=== PATIENT | female | born 1970 | race Caucasian/White ===

== ENCOUNTER → 2017-01-31 | Outpatient (CLI) | payer BC ==
--- NOTE | 2017-02-01 07:53 | MM ---
Reason for exam: screening (asymptomatic). Last mammogram was performed 1 year and 10 months ago. History: Patient is postmenopausal and has history of other cancer at age 20. Physical Findings: A clinical breast exam by your physician is recommended on an annual basis and results should be correlated with mammographic findings. MG Screening Mammo w CAD Bilateral CC and MLO view(s) were taken. Prior study comparison: April 03, 2015, bilateral MG screening mammo w CAD. The breast tissue is heterogeneously dense. This may lower the sensitivity of mammography. No significant changes when compared with prior studies. ASSESSMENT: Benign, BI-RAD 2 RECOMMENDATION: Routine screening mammogram of both breasts in 1 year.
== END | disposition home or self-care (01) ==
LOC: RADMAMWWP 07:49
PROVIDERS: ATTEND Family Medicine
DX: Z12.31 Encounter for screening mammogram for malignant neoplasm of breast (principal)

== ENCOUNTER → 2018-07-27 | Day surgery (SDC) | payer BC ==
[2018-07-26 10:19] VITALS: BMI 22.8
[~2018-07-27] MED LIST: LACTATED RINGERS 1,000 ML IV SCH; LIDOCAINE 1% 20 ML VIAL (10MG/ML) FOR IV START INTRADERMA ONE; LIDOCAINE 1% INJ 10MG/ML (20 ML MDV) ONE; PROPOFOL 10 MG/ML 20 ML VIAL IV ONE
[2018-07-27 12:08] VITALS: TEMP 97.4
--- NOTE | 2018-07-27 13:53 | P.PCN ---
Date of Procedure: 07/27/18 Procedure(s) Performed: Procedure: Colonoscopy and polypectomy. Preoperative diagnosis: History of diarrhea. Postoperative diagnosis: 1. Mild sigmoid diverticulosis with no evidence of acute diverticulitis or strictures. 2. Small sigmoid polyp snared but no large polyps or cancer. 3. Colon and terminal ileum, otherwise, within normal limits. Preparation: HalfLytely prep. Sedation: Was provided by anesthesia. Brief clinical history: The patient is a 47-year-old female who is scheduled for this evaluation because of history of diarrhea that went on for more than a month. She has been doing well for the last week or 2. No prior colonoscopy. Procedure: With the patient on her left lateral decubitus position and after informed consent and adequate sedation, the perianal area was inspected and it did not show any fissures or fistulas. There were no masses felt on digital rectal examination. The Olympus CFH 190L video colonoscope was then inserted in the rectum in the usual fashion and advanced to the cecum. I intubated the ileocecal valve and examined the terminal ileum. Terminal ileum and colon appeared healthy with no edema, erythema, friability, ulceration, exudation or spontaneous bleeding. There was a small polyp in the distal sigmoid which was snared and retrieved by suction but there were no large polyps or cancer. An occasional diverticular orifice was seen in the distal sigmoid with no evidence of acute diverticulitis or strictures. No biopsies were indicated then I retroflexed the endoscope in the rectum before the endoscope was withdrawn. The patient tolerated the procedure well. Plan: The patient was reassured. Discussed dietary measures. She will follow- up with you as planned and I recommended repeat exam in 3-5 years.
[2018-07-27 14:24] VITALS: BP 130/89; PULSE 78; RESP 18
== END ==
LOC: ORWHC2ENDO 11:32
DX: D12.5 Benign neoplasm of sigmoid colon (principal); K57.30 Diverticulosis of large intestine without perforation or abscess without bleeding; J45.909 Unspecified asthma, uncomplicated; F17.210 Nicotine dependence, cigarettes, uncomplicated; F90.9 Attention-deficit hyperactivity disorder, unspecified type; R51 Headache; Z79.899 Other long term (current) drug therapy
CPT/HCPCS: 88305; 45385; J2001; J2704

== ENCOUNTER → 2018-07-28 | Outpatient (CLI) | payer BC ==
--- NOTE | 2018-07-30 12:00 | US ---
EXAMINATION TYPE: US abdomen complete DATE OF EXAM: 07/28/2018 COMPARISON: NONE CLINICAL HISTORY: R10.9 Abdominal pain. EXAM MEASUREMENTS: Liver Length: 11.6 cm Gallbladder Wall: 0.2 cm CBD: 0.6 cm Spleen: 8.7 cm Right Kidney: 9.6 x 4.4 cm Left Kidney: 10.1 x 5.7 x 4.7 cm Extensive midline bowel gas Pancreas: Tail obscured by overlying bowel gas Liver: wnl Gallbladder: wnl Evidence for sonographic Melton's sign: CBD: wnl Spleen: wnl Right Kidney: somewhat limited views due to overlying bowel gas Left Kidney: large stone measuring 1.8 x 1.0 x 1.6cm Upper IVC: wnl Abd Aorta: bifurcation obscured by overlying bowel gas The visualized liver is homogenous. The intrahepatic portion of the IVC and visualized abdominal aor ta are within normal limits. There is no evidence of cholelithiasis. Common bile duct is unremarkab le. The visualized portions of the pancreas are homogenous. The spleen is unremarkable. Kidneys ar e symmetric and free of hydronephrosis. No renal lesions are seen on images saved. IMPRESSION: Suspect large nonobstructing left renal calculus laterally upper to mid pole level. Corre late with abdominal x-ray.
== END | disposition home or self-care (01) ==
LOC: RADUSWWP 16:12
PROVIDERS: ATTEND Physician Assistant
DX: R10.9 Unspecified abdominal pain (principal)
CPT/HCPCS: 76700

== ENCOUNTER → 2018-09-12 | Outpatient (CLI) | payer BC ==
--- NOTE | 2018-09-12 09:19 | XR ---
Abdomen HISTORY: Renal calculus Single frontal view of the abdomen Correlation to ultrasound abdomen 07/28/2018 There is a calcification superimposed over the left kidney region which measures approximately 19 mm in greatest dimension, suggestion of some fragmentation is noted. Lung bases are clear. There is no e vident bowel obstruction or pneumoperitoneum. IMPRESSION: Left-sided nephrolithiasis as described.
== END | disposition home or self-care (01) ==
LOC: RADXRMAIN 08:35
PROVIDERS: ATTEND Urology
DX: N20.0 Calculus of kidney (principal)
CPT/HCPCS: 74018

== ENCOUNTER 2018-09-21 10:52 | Day surgery (SDC) | payer BC ==
[2018-09-20 08:31] VITALS: BMI 23.8
[~2018-09-21 10:52] MED LIST changes: -LIDOCAINE 1% 20 ML VIAL (10MG/ML) FOR IV START INTRADERMA ONE; +LIDOCAINE 1% 20 ML VIAL (10MG/ML) FOR IV START INTRADERMA PRN; -LIDOCAINE 1% INJ 10MG/ML (20 ML MDV) ONE; +MIDAZOLAM (PF) 2 MG/2 ML VIAL IV PRN; -PROPOFOL 10 MG/ML 20 ML VIAL IV ONE
[2018-09-21 12:28] VITALS: TEMP 97
[2018-09-21] MEDS ORDERED: fentaNYL (PF) 50 MCG/ML 2 ML AMP ONE (12:59)
[2018-09-21] MEDS ORDERED: PROPOFOL 10 MG/ML 20 ML VIAL IV ONE (12:59)
[2018-09-21] MEDS ORDERED: LIDOCAINE 1% INJ 10MG/ML (20 ML MDV) ONE (12:59)
[2018-09-21 13:28] VITALS: RESP 16
--- NOTE | 2018-09-21 13:29 | P.PCN ---
Date of Procedure: 09/21/18 Procedure(s) Performed: Procedure: Esophagogastroduodenoscopy and biopsy. Preoperative diagnosis: Heartburn and nausea. Postoperative diagnosis: 1. Sliding hiatal hernia with LA grade A distal esophagitis. 2. Mild antral gastritis and duodenitis. 3. Multiple biopsies obtained from the duodenum, antrum and esophagus. Preparation and sedation: Was provided by anesthesia. Brief clinical history: The patient is a 47-year-old female who is scheduled for this evaluation for the above symptoms which has been going on for around 2 months. The patient may have had similar complaints before that which were not consistent and not lasting that long. She is currently on Prilosec. This evaluation is to assess for peptic ulcer disease,, complicated reflux disease or other pathology noted Procedure: With the patient on her left lateral decubitus position and after informed consent and adequate sedation, I passed the Olympus-GIF a 190 video upper endoscope through the cricopharyngeus down the esophagus. GE junction was around 38 cm from the incisors and there was a 1-2 cm sliding hiatal hernia. The distal esophagus showed 2 short superficial erosions consistent with LA grade A distal esophagitis but there were no ulcers or strictures or any evidence of Muñiz's esophagus. The endoscope was then passed into the stomach which was insufflated with air and inspected in detail including the retroflex view in the cardia. There was some mottling and erythema in the antrum but no ulcers or erosions. Pyloric channel did not show any ulcers. Duodenal bulb showed some erythema but no ulcers, erosions or bleeding. Post bulbar area and descending duodenum within normal limits. I obtained biopsies from the duodenum, antrum and esophagus then the endoscope was withdrawn. The patient tolerated the procedure well. Plan: The patient was reassured. Will await biopsy results and make further plans based on her course and biopsy results. I will keep you updated on her progress.
[2018-09-21 13:48] VITALS: BP 129/87; PULSE 92
== END 2018-09-21 14:10 | disposition home or self-care (01) ==
LOC: ORWHC2ENDO 10:52
DX: K20.0 Eosinophilic esophagitis (principal); K29.80 Duodenitis without bleeding; K29.50 Unspecified chronic gastritis without bleeding; K44.9 Diaphragmatic hernia without obstruction or gangrene; G43.909 Migraine, unspecified, not intractable, without status migrainosus; M19.90 Unspecified osteoarthritis, unspecified site; F17.210 Nicotine dependence, cigarettes, uncomplicated; Z79.899 Other long term (current) drug therapy
CPT/HCPCS: 88305; 43239; J2001; J3010; J2704

== ENCOUNTER → 2018-09-29 | Outpatient (CLI) | payer BC ==
--- NOTE | 2018-09-29 17:20 | CT ---
EXAMINATION TYPE: CT abdomen pelvis wo con DATE OF EXAM: 09/29/2018 COMPARISON: None HISTORY: left flank pain CT DLP: 250.3 mGycm Automated exposure control for dose reduction was used. TECHNIQUE: Helical acquisition of images was performed from the lung bases through the pelvis. FINDINGS: LUNG BASES: No significant abnormality is appreciated. LIVER/GB: Tiny hypodensity within the dome of the liver measuring 5 mm is too small to characterize b y noncontrast technique. PANCREAS: No significant abnormality is seen. SPLEEN: No significant abnormality is seen. ADRENALS: No significant abnormality is seen. KIDNEYS: There is loss of renal cortex on the left with a large cortical-based calcification measurin g 1.6 cm. No hydronephrosis bilaterally. ADENOPATHY: None visualized. OSSEOUS STRUCTURES: Bilateral spondylolysis of L5. There is multilevel degenerative disc disease and facet set arthropathy rib deformity noted on the right likely in the basis of remote trauma. BOWEL: Bowel gas pattern nonspecific. OTHER: Within the posterior left flank there is a soft tissue nodule subcutaneous tissues measuring 2 .3 cm is nonspecific. Possibly representing sebaceous cyst. Atherosclerotic change of the aorta. IMPRESSION: 1. There is a large calcification cortically-based measuring 1.6 cm left kidney. Loss of renal cortex in the region just possible dystrophic calcification. No hydronephrosis. 2. Within the soft tissues of the left flank in the subcutaneous tissues there is a 2.3 cm soft tissu e nodule which is nonspecific. Sebaceous cyst in the differential diagnosis. Correlate clinically to exclude other etiologies. 3. Multilevel degenerative disc disease with bilateral spondylolysis L5 and grade 1 spondylolisthesis L5 on S1. Findings likely result in bilateral foraminal encroachment
== END | disposition home or self-care (01) ==
LOC: RADCTMAIN 16:04
PROVIDERS: ATTEND Urology
DX: N20.0 Calculus of kidney (principal); M79.89 Other specified soft tissue disorders
CPT/HCPCS: 74176

== ENCOUNTER → 2019-12-26 | Outpatient (CLI) | payer BC ==
--- NOTE | 2019-12-26 15:32 | CT ---
EXAMINATION TYPE: CT cervical spine wo con DATE OF EXAM: 12/26/2019 COMPARISON: CT cervical spine May 19, 2012 HISTORY: neck pain following fall injury 3 months ago per patient. Abnormal x-ray per order. CT DLP: 313.9 mGycm. Automated Exposure Control for Dose Reduction was Utilized. TECHNIQUE: CT scan of the cervical spine is obtained without contrast, axial images are obtained, sa gittal and coronal reformatted images are also reviewed. FINDINGS: Cervical spine is visualized in its entirety from C1 through upper thoracic levels, and red emonstrates some loss of normal cervical curvature centered at C5-C6 levels without evidence of acute fracture or dislocation. Prevertebral soft tissue appears within normal limits. The C1-C2 articula tion is within normal limits on the coronal images. Vertebral body heights are maintained. Slight gra de 1 anterolisthesis C3 on C4 redemonstrated. Moderate spurring and disc space narrowing C5-C6 and C6 -C7 levels with posterior spur disc complexes effacing anterior thecal sac are again seen. Review of axial images shows uncovertebral facet degenerative changes bilaterally contributing to mul tilevel neural foraminal narrowing greatest left C3-C4 level axial image 43 and right C4-C5 level axi al image 52 along with right C5-C6 level axial image 59 for marginal spurring. Thyroid gland remains within normal limits. Visualized lung apices show no pneumothorax, motion artifact degradation is pre sent. IMPRESSION: As above.
== END | disposition home or self-care (01) ==
LOC: RADCTMAIN 15:01
PROVIDERS: ATTEND Family Medicine
DX: M99.71 Connective tissue and disc stenosis of intervertebral foramina of cervical region (principal); M48.02 Spinal stenosis, cervical region; M43.12 Spondylolisthesis, cervical region; M47.812 Spondylosis without myelopathy or radiculopathy, cervical region
CPT/HCPCS: 72125

== ENCOUNTER → 2020-01-04 | Outpatient (CLI) | payer BC ==
--- NOTE | 2020-01-08 08:20 | MM ---
Reason for exam: screening (asymptomatic). Last mammogram was performed 2 years and 11 months ago. History: Patient is postmenopausal and has history of other cancer at age 20. Physical Findings: A clinical breast exam by your physician is recommended on an annual basis and results should be correlated with mammographic findings. MG Screening Mammo w CAD Bilateral CC and MLO view(s) were taken. Prior study comparison: January 31, 2017, bilateral MG screening mammo w CAD. April 03, 2015, bilateral MG screening mammo w CAD. The breast tissue is heterogeneously dense. This may lower the sensitivity of mammography. There are benign appearing round calcifications bilaterally. There is no discrete abnormality. ASSESSMENT: Benign, BI-RAD 2 RECOMMENDATION: Routine screening mammogram of both breasts in 1 year.
== END | disposition home or self-care (01) ==
LOC: RADMAMWWP 15:38
PROVIDERS: ATTEND Family Medicine
DX: Z12.39 Encounter for other screening for malignant neoplasm of breast (principal)
CPT/HCPCS: 77067